=== PATIENT | female | born 1955 | race Caucasian/White ===

== ENCOUNTER 2019-11-08 07:55 | Outpatient (CLI) | payer BC, SELFPAY ==
--- NOTE | ~2019-11-08 | MM_ITS ---
EXAMINATION: MM screening [place] BI w tati HISTORY: Screening mammogram TECHNIQUE: Craniocaudal and mediolateral oblique 3-D tomosynthesis images were obtained and synthetic 2-D images were generated. CAD analysis was submitted and interpreted. COMPARISON: 09/01/2018, 08/16/2017, 08/07/2016 bilateral digital screening BREAST PARENCHYMAL COMPOSITION: There are scattered areas of fibroglandular density. FINDINGS: There is no evidence of suspicious mass, calcification, or architectural distortion to sugg est malignancy in either breast. There has been no suspicious interval change. IMPRESSION: 1. No mammographic evidence of malignancy. 2. Recommend routine screening mammography in one year. BI-RADS Category 1: Negative Reviewed, dictated and finalized at location A.
== END 2019-11-08 07:56 | disposition home or self-care (01) ==
LOC: ANHIMG 08:01
PROVIDERS: PCP Family Medicine
DX: Z12.31 Encounter for screening mammogram for malignant neoplasm of breast (principal)
CPT/HCPCS: 77063; 77067

== ENCOUNTER 2020-11-11 07:58 | Outpatient (CLI) | payer BC, SELFPAY ==
--- NOTE | ~2020-11-11 | MM_ITS ---
EXAMINATION: MM screening [place] BI w tati HISTORY: Screening TECHNIQUE: Craniocaudal and mediolateral oblique 3-D tomosynthesis images were obtained and synthetic 2-D images were generated. CAD analysis was submitted and interpreted. COMPARISON: Comparison to multiple prior studies sequentially, with oldest reviewed study dated 08/06. BREAST PARENCHYMAL COMPOSITION: There are scattered areas of fibroglandular density. FINDINGS: There is no evidence of suspicious mass, calcification, or architectural distortion to sugg est malignancy in either breast. There has been no suspicious interval change. IMPRESSION: 1. No mammographic evidence of malignancy. 2. Recommend routine screening mammography in one year. BI-RADS Category 1: Negative Reviewed, dictated and finalized at location A.
== END 2020-11-11 07:59 | disposition home or self-care (01) ==
LOC: ANHIMG 08:00
PROVIDERS: PCP Family Medicine; Visit Provider Physician Assistant
DX: Z12.31 Encounter for screening mammogram for malignant neoplasm of breast (principal)
CPT/HCPCS: 77063; 77067

== ENCOUNTER 2021-01-13 08:47 | Outpatient (CLI) | payer BC, SELFPAY ==
--- NOTE | ~2021-01-13 | DEXA_ITS ---
Bone Density Report Name: Chelo Kwon Age: 65 Sex: Female Ethnicity: White Date of : 1955 Indication: postmenopausal; hysterectomy; Referring Provider: Aleah Denis Study: Bone densitometry was performed. Exam Date: January 13, 2021 Accession number: [id number] Bone Density: Region BMD T-score Z-score Classification AP Spine (L3, L4) 1.388 2.6 4.4 Normal Femoral Neck (Right) 0.874 0.2 1.7 Normal Total Hip (Right) 1.178 1.9 3.1 Normal World Health Organization criteria for BMD impression classify patients as: Normal (T-score at or above -1.0), Osteopenia (T-score between -1.0 and -2.5), or Osteoporosis (T-score at or below -2.5). 10-year Fracture Risk: FRAX not reported because: All T-scores for Spine Total, Hip Total, Femoral Neck at or above -1.0 Clinical Information Provided by Patient: Has used the following medications: Vitamin D Has the following medical conditions: Hysterectomy Patient maximum height was 61 Menopause Age: 31 Drinks caffeinated beverages Onset of menses at age 14 Number of children 0 Impression: The patient has normal bone mass. Discussion: BONE DENSITY IS ABOVE THE MINIMUM DESIRABLE LEVEL AT ALL SKELETAL SITES TESTED. This patient?s bone mineral density is above the minimum desirable level (T-score -1.0 or better) at all sites measured. The patient should follow a healthful lifestyle (good nutrition with adequate calcium and vitamin D, and appropriate weight-bearing exercise). Follow-Up: Consider repeating this study in 5 years or sooner if there is some new clinical indication. Reported by: VARINDER on 01/13/2021 9:04:00 AM. Reviewed, dictated and finalized at location Meka SANCHEZ
== END 2021-01-13 08:48 | disposition home or self-care (01) ==
LOC: ANHIMG 08:49
PROVIDERS: PCP Family Medicine; Visit Provider Physician Assistant
DX: Z78.0 Asymptomatic menopausal state (principal)
CPT/HCPCS: 77080

== ENCOUNTER 2021-08-13 11:54 | Observation (INO) | payer MEDICARE, SELFPAY ==
[2021-08-13] VITALS (59 sets, daily range): BP systolic 103–177; BP diastolic 55–138; PULSE 72–167; RESP 11–33; TEMP 36.1–36.7; O2SAT 90–100; BMI 49.8
--- NOTE | ~2021-08-13 | XR_ITS ---
EXAMINATION: XR chest 2V DATE: 08/13/2021 12:18 INDICATION: Shortness of breath. TECHNIQUE: Frontal and lateral views of the chest were obtained. COMPARISON: None. FINDINGS: There is mild atelectasis at right mid and lower lung zones and left lower lung zone. Calci fied pulmonary nodules are consistent with old granulomatous disease. No pleural effusion or pneumoth orax. The heart size is normal. There is a right shoulder arthroplasty. IMPRESSION: 1. Mild atelectasis in right mid and lower lung zones and left lower lung zone. Reviewed, dictated and finalized at location B.
--- NOTE | 2021-08-13 12:02 | ECG_ITS ---
Measurements Intervals [place] Rate: 144 P: ID: 0 QRS: -27 QRSD: 99 T: 46 QT: 287 QTc: 445 Interpretive Statements ATRIAL FIBRILLATION WITH RAPID VENTRICULAR RESPONSE BORDERLINE R WAVE PROGRESSION, ANTERIOR LEADS ABNORMAL ECG Electronically Signed On 08-13-2021 12:06:52 CDT by Carlin Bowen D.O.
[2021-08-13 12:20] LABS: Basophils Absolute Auto 0.1 K/mm3 (0.0-0.1); Basophils Percent Auto 0.6 % (0.2-1.2); Eosinophils Absolute Auto 0.2 K/mm3 (0-0.3); Eosinophils Percent Auto 1.8 % (0-4.4); Hematocrit 47.1 % (37.0-47.0); Hemoglobin 15.1 g/dL (12.0-15.0); Immature Granulocyte Absolute 0.06 K/mm3 (0.00-0.031); Immature Granulocyte Percent A 0.6 % (0-0.5); Immature Platelet Fraction Pct 5.3 % (0.9-11.2); Lymphocytes Absolute Auto 2.68 K/mm3 (0.9-3.2); Lymphocytes Percent Auto 24.7 % (18.3-44.2); Mean Corpuscular HGB Conc 32.1 g/dl (32-36); Mean Corpuscular Hemoglobin 30.1 pg (26-34); Mean Platelet Volume 11.7 fl (7.4-10.4); Monocytes Absolute Auto 0.7 K/mm3 (0.1-0.6); Monocytes Percent Auto 6.7 % (2.6-8.5); Neutrophils Absolute Auto 7.1 K/mm3 (1.3-6.7); Neutrophils Percent Auto 65.6 % (45.5-73.1); Platelet Count Result 240 k/mm3 (150-375); Red Blood Count 5.01 M/mm3 (4.2-5.4); Red Cell Distribution Width 14.8 % (11.5-14.5); White Blood Count 10.8 K/mm3 (4.5-10.0)
[2021-08-13 12:29] LABS: Alanine Aminotransferase 31 U/L (4-35); Albumin Level 4.9 g/dL (3.5-5.1); Alkaline Phosphatase 140 U/L (38-126); Anion Gap 9 mmol/L (8-16); Aspartate Amino Transferase 38 U/L (14-36); Bilirubin,Total 0.7 mg/dL (0.2-1.3); Blood Urea Nitrogen 17 mg/dL (7-17); Calcium 9.9 mg/dL (8.4-10.2); Carbon Dioxide 27 mmol/L (22-30); Chloride 102 mmol/L (98-107); Estimated CRCL calculation 71 ml/min; Estimated Glomerular Filt Rate > 60; Glucose 125 mg/dL (65-110); Sodium 138 mmol/L (137-145)
[2021-08-13] MEDS: dilTIAZem HCl INJ 25 MG/5 ML VIAL 15 MG IV PUSH (12:38)
[2021-08-13] MEDS: dilTIAZem HCl INJ 25 MG/5 ML VIAL 10 MG IV PUSH (13:53)
[2021-08-13] MEDS: dilTIAZem 100 MG/100 ML 100 MG/100 ML BAG IV CONT (14:11)
--- NOTE | 2021-08-13 14:15 | ED.SOB ---
HPI - SOB/Dyspnea General Chief Complaint: Shortness of Breath/Dyspnea Stated Complaint: short of breath Time Seen by Provider: 08/13/21 12:08 Source: patient Mode of arrival: ambulatory Limitations: no limitations History of Present Illness HPI Narrative: 66-year-old with a history of hypertension, obstructive sleep apnea, hyperlipidemia, hypothyroidism here with complaints of shortness of breath since this morning. She thought she was having an anxiety attack. However she called her friend who recommended to go to the ER. Patient presently denies having any chest discomfort. She denies any cough , fever or chills. MD elicited complaint: shortness of breath Onset (ago): hour(s) (4) Timing: constant Severity: moderate Exacerbating factors: nothing Relieving factors: nothing Known history of: other (Hypertension) Associated symptoms: denies other symptoms Treatment prior to arrival: none Related Data Home oxygen amount: none Home Medications Medication Instructions Recorded Confirmed cholecalciferol (vitamin D3) 125 125 mcg PO DAILY 12/26/19 04/21/21 mcg (5,000 unit) tablet clindamycin HCl 300 mg capsule 300 mg PO Q8H 12/26/19 04/21/21 cyanocobalamin (vitamin B-12) 1,000 mcg PO DAILY 12/26/19 04/21/21 1,000 mcg capsule xuvvcday-yvdnrle-xkxh-lutein tablet mcg PO DAILY tablet 12/26/19 04/21/21 omega 5-gzt-xfc-fish oil 1,200 mg cap PO .QD cap 12/26/19 04/21/21 (144 mg-216 mg) capsule glucosam 750 mg-chondroi 100 tablet PO 10/11/20 04/21/21 mg-hyalur 1.65 mg-CF borate 108 mg tablet Allergies Allergy/AdvReac Type Severity Reaction Status Date / Time Penicillins Allergy Severe SWELLING Verified 04/21/21 08:51 atenolol Allergy Unknown ANXIETY Verified 04/21/21 08:51 Review of Systems Review of Systems: All systems reviewed & are unremarkable except as noted in HPI and below Eyes: Eyes: Reports no additional eye complaints ENT: Reports system reviewed and no additional complaints, except as documented Cardiovascular: Cardiovascular: Reports as per HPI Respiratory: Respiratory: Reports no additional respiratory complaints Gastrointestinal: Gastrointestinal: Reports no additional gastrointestinal complaints Musculoskeletal: Musculoskeletal: Reports no additional musculoskeletal complaints Integumentary/Breasts: Skin/Breast: Reports system reviewed and no additional complaints, except as docu Neurologic: Reports system reviewed and no additional complaints, except as documented Hematologic/Lymphatic: Hematologic/Lymphatic: Reports no additional hematologic/lymphatic complaints Allergic/Immunologic: Allergic/Immunologic: Reports no additional allergic/immunologic complaints PMFSH Past Medical History Medical History Colon polyps CPAP (continuous positive airway pressure) dependence Encounter to establish care Family history of colon cancer Gout HTN (hypertension) Hyperlipidemia Hypothyroidism (acquired) Morbid obesity with BMI of 50.0-59.9, adult DOMO (obstructive sleep apnea) DOMO on CPAP Osteoarthritis Pre-diabetes Primary hypertension Seasonal allergies Thyroid disorder Thyroid nodule Surgical History Surgical History H/O abdominal hysterectomy History of orthopedic surgery History of shoulder replacement History of tonsillectomy History of total hip replacement Family History Family History Mother Carcinoma of colon Sibling Diabetes mellitus Sibling Hypertension Father Heart disease Social History Social History Second hand tobacco smoke exposure: No Smoking end date: 06/16/91 Alcohol intake: current Drinks per week: 1 Substance use: never Substance use type: does not use Gender identity (if verbalized by the patient): Female S
--- NOTE | 2021-08-13 14:43 | PM.CNCAR ---
Assessment and Plan Assessment and plan (1) Atrial fibrillation with RVR: Code(s): I48.91 - Unspecified atrial fibrillation Status: Acute Assessment and Plan: New onset. Symptomatic. Probably due to obesity and age. [id number] 3. Rate control with Diltiazem. Anticoagulation with Lovenox; will change to DOAC upon discharge. Hopefully she will spontaneously cardiovert with rate control. If not, then will start antiarrhythmic medication. Obtain echo. (2) Hyperlipidemia: Qualifiers: Hyperlipidemia type: mixed hyperlipidemia Qualified Code(s): E78.2 - Mixed hyperlipidemia Code(s): E78.5 - Hyperlipidemia, unspecified Status: Acute Assessment and Plan: Advise to maintain a low saturated fat diet. (3) Primary hypertension: Code(s): I10 - Essential (primary) hypertension Status: Acute Assessment and Plan: Stable. Advise to maintain a low sodium diet. (4) Morbid obesity with BMI of 50.0-59.9, adult: Code(s): E66.01 - Morbid (severe) obesity due to excess calories; Z68.43 - Body mass index [BMI] 50.0-59.9, adult Status: Acute (5) DOMO on CPAP: Code(s): G47.33 - Obstructive sleep apnea (adult) (pediatric); Z99.89 - Dependence on other enabling machines and devices Status: Acute Assessment and Plan: Continue with regular CPAP use for sleep. History of Present Illness History of Present Illness Consult date/time: 08/13/21 14:43 Reason for consult: Atrial fib 66 yr old woman presented to ER for sob and palpitations. She has a history of DOMO on CPAP for 10 years, hypertension, dyslipidemia, pre DM. Her brother is at bedside. Reports she woke up this morning feeling symptoms of weakness, sob, and palpitations. She finally decided to come in to ER and was found she has new onset atrial fib with RVR. She has been started on Diltiazem drip and Lovenox. She states she can walk about 1/2 mile. Denies chest pain, orthopnea, PND, edema, dizziness. EKG shows atrial fib with RVR at 144 bpm, BRWP. CXR shows atelectasis. Previous TSH is normal. CMP is OK with alk phos 140. Reason For Visit: short of breath Review of Systems Review of Systems: All systems reviewed & are unremarkable except as noted in HPI and below Constitutional: Constitutional: Reports as per HPI, Denies chills and Denies fever(s) Cardiovascular: Cardiovascular: Reports as per HPI, Denies chest pain, Reports irregular heart rhythm, Denies leg edema and Denies lightheadedness Respiratory: Respiratory: Reports as per HPI and Reports dyspnea Gastrointestinal: Gastrointestinal: Reports as per HPI and Denies abdominal pain Genitourinary: Genitourinary: Reports as per HPI and Denies dysuria Musculoskeletal: Musculoskeletal: Reports as per HPI Neurologic: Reports as per HPI, Denies dizziness and Denies syncope [facility] Past Medical History Medical History Colon polyps CPAP (continuous positive airway pressure) dependence Encounter to establish care Family history of colon cancer Gout HTN (hypertension) Hyperlipidemia Hypothyroidism (acquired) Morbid obesity with BMI of 50.0-59.9, adult DOMO (obstructive sleep apnea) DOMO on CPAP Osteoarthritis Pre-diabetes Primary hypertension Seasonal allergies Thyroid disorder Thyroid nodule Surgical History Surgical History H/O abdominal hysterectomy History of orthopedic surgery History of shoulder replacement History of tonsillectomy History of total hip replacement Family History Family History Mother Carcinoma of colon Sibling Diabetes mellitus Sibling Hypertension Father Heart disease Social History Social History Second hand tobacco smoke exposure: No Smoking end date: 06/16/91 Carmen
[2021-08-13 14:44] LABS: SARS-CoV-2 RNA PCR Negative
--- NOTE | 2021-08-13 16:24 | PC.NURSE ---
monitor just checked and pt noted to be in SR, ERP notified
--- NOTE | 2021-08-13 16:25 | ECG_ITS ---
Measurements Intervals [place] Rate: 77 P: -10 MI: 162 QRS: -24 QRSD: 101 T: 43 QT: 410 QTc: 466 Interpretive Statements SINUS RHYTHM BORDERLINE R WAVE PROGRESSION, ANTERIOR LEADS BORDERLINE ECG Electronically Signed On 08-13-2021 17:24:27 CDT by Carlin Bowen D.O.
--- NOTE | 2021-08-13 17:00 | PM.IMHP ---
H&P: HPI History of Present Illness Date/Time: 08/13/21 17:00 Chief Complaint: Shortness of breath. Narrative: This is very pleasant 66-year-old female with sleep apnea, hypertension, hyperlipidemia, prediabetes, and hypothyroidism who presented to the emergency department for evaluation of shortness of breath. Shortly after waking up she began to feel short of breath, like she could not inflate her lungs entirely, ?and was just not feeling right.? She has an appointment to get a massaged and while there she started to feel increasingly short of breath at which time she thought perhaps she was having a panic attack although she admits that she has never actually had a panic attack and rarely has anxiety. After talking to her friend about her symptoms, she thought it was best to come to the ER for evaluation where she was found to be in atrial fibrillation with rapid ventricular response. She was started on a Cardizem drip and converted to a normal sinus rhythm within a couple of hours. At the time my evaluation she is feeling much better and is no longer short of breath. She never really had any sensation of racing heart or chest discomfort though it is impossible say if she has been in atrial fibrillation before though she is adamant that she has never experienced similar symptoms prior to today. She denies exertional chest pain, shortness of breath, nausea, vomiting, sweats, syncope, and presyncope. She states compliance with her CPAP though admits that she has gained weight since her last sleep study well over 5 years ago. She denies significant caffeine and alcohol intake. She believes her last TSH was within normal limits. Review of Systems Review of Systems: Twelve systems were reviewed. No fever, chills, or sweats. No recent cold or flu symptoms. She does not check her glucose at home daily but when she does check it it is usually below 110. No orthopnea, PND, or significant lower extremity edema. Except as documented, all other systems were reviewed and are negative. [facility] Past Medical History Medical History (Updated 08/13/21 @ 21:02 by Salena Peter PA-C) Colon polyps Gout Hyperlipidemia Hypertension Hypothyroidism (acquired) Obstructive sleep apnea on CPAP Osteoarthritis Pre-diabetes Primary hypertension Seasonal allergies Thyroid nodule Surgical History Surgical History (Updated 08/13/21 @ 20:59 by Salena Peter PA-C) History of abdominal hysterectomy History of left hip replacement History of orthopedic surgery History of right shoulder replacement History of tonsillectomy Family History Family History Mother Carcinoma of colon Sibling Diabetes mellitus Sibling Hypertension Father Heart disease Social History Social History (Updated 08/13/21 @ 21:00 by Salena Peter PA-C) Social History: Surrogate decision maker: Brown Kwon, brother. Code status: Full code. Smoking packs per day: 1 Smoking cigarettes per day: 20.0 Years smoked: 15 Smoking pack-years: 15.00 Smoking status: Former smoker Second hand tobacco smoke exposure: No Smoking end date: 06/16/91 Alcohol intake: current Drinks per week: 1 Substance use: never Substance use type: does not use Additional living arrangements comments: The patient lives in her own home in [place]. 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 Spiritual care concerns: No Agree to blood products: Yes Meds Home Medications and Allergies Home Medications Medication Instructions Recorded Confirmed Type cholecalciferol (vitamin D3) 125 125 mcg PO DAILY 12/26/19 08/13/21 History mcg (5,000 unit) tablet cyanocobalamin (vitamin B-12) 1,000 mcg PO DAILY 12/26/19 08/13/21 History 1,000 mcg capsule vepfvwml-gpizpgt-ykgv-lutein tablet 1 tablet PO HS tablet 12/26/19 08/13/21 History omega 3-dha-epa-
[2021-08-13] MEDS: RIVAROXABAN 20 MG TABLET PO (17:53)
--- NOTE | 2021-08-13 18:05 | ADMGEN ---
This patient, Chelo Kwon, was admitted to IMU Room 232-01 on 08/13/21 at 1750. Patient/family oriented to hospital policies and general routines including ID bracelet, bed and alarms, visiting hours, pain management, procedures, bathroom and other care routines, personal items, smoking policy, room service/diet, and visiting hours. Information on how to activate the Rapid Response Team has been discussed. Patient/Family are encouraged to report perceived risks to care and to ask questions if they do not understand what they are told or what they should do.
[2021-08-13 18:36] LABS: Troponin I 0.012 ng/mL (0.000-0.034)
[2021-08-13 21:20] LABS: Troponin I 0.013 ng/mL (0.000-0.034)
[2021-08-14] VITALS (7 sets, daily range): BP systolic 150–167; BP diastolic 82–83; PULSE 71–78; RESP 16–22; TEMP 35.8–36.7; O2SAT 95–99
--- NOTE | 2021-08-14 | ECHO_ITS ---
Patient Info Name: Chelo Kwon Age: 66 years : 1955 Gender: Female Ht: 61 in Wt: 249 lbs BSA: 2.28 m2 HR: 72 bpm BP: 150 / 82 mmHg Heart Rhythm: Sinus Rhythm Technical Quality: Fair Exam Date: 08/14/2021 8:25 AM Exam Location: [facility] Patient Status: Outpatient Admit Date: 08/13/2021 Staff Ordering Physician: Carlin Bowen DO Sports Intern: Mita Vora RDCS Attending Provider: Bowen Fan MD Referring Physician: Andrés NAVARRO; Exam Type: CA echo doppler color flow Study Info Indications - new afib Complete two-dimensional, color flow and Doppler transthoracic echocardiogram is performed. Summary 1. Complete two-dimensional, color flow and Doppler transthoracic echocardiogram is performed. 2. Left ventricular chamber dimension is normal. 3. Left ventricular systolic function is normal, estimated at 65-70%. 4. The left ventricular diastolic function is grade I diastolic dysfunction. 5. E/e' 17 is elevated. 6. There is mild aortic valve sclerosis. 7. There is mild aortic valve regurgitation. 8. The mitral valve has mildly calcified annulus. 9. There is trace mitral valve regurgitation. 10. No pulmonary hypertension, estimated pulmonary arterial systolic pressure is 20 mmHg. Left Ventricle E/e' 17 is elevated. Left ventricular chamber dimension is normal. Left ventricular systolic function is normal, estimated at 65-70%. The left ventricular diastolic function is grade I diastolic dysfunction. Right Ventricle Right ventricular systolic function is normal with normal TAPSE 2.0 cm. Right ventricular chamber dimension is normal. Left Atria Left atrial chamber dimension is normal. Right Atria Right atrial chamber dimension is normal. Aortic Valve The aortic valve is trileaflet. There is mild aortic valve sclerosis. There is no aortic valve stenosis. There is mild aortic valve regurgitation. Pulmonic Valve There is no pulmonic regurgitation. Mitral Valve The mitral valve has mildly calcified annulus. There is no mitral valve stenosis. There is trace mitral valve regurgitation. Tricuspid Valve There is no tricuspid valve regurgitation. No pulmonary hypertension, estimated pulmonary arterial systolic pressure is 20 mmHg. Pericardium/Pleural There is no pericardial effusion. Inferior Vena Cava Normal inferior vena cava with >50% collapse upon inspiration consistent with normal right atrial pressure, 5 mmHg. Aorta The aortic root size at the sinus of Valsalva is normal. Left Ventricular Outflow Tract Name Value Normal LVOT 2D LVOT Diameter 2.0 cm LVOT Doppler LVOT Peak Gradient 5 mmHg LVOT Mean Gradient 3 mmHg LVOT VTI 26 cm LVOT VTI/AV VTI Ratio 0.6 LVOT Stroke Volume 84 ml LVOT CO 5.3 l/min LVOT CI 2.3 l/min/m2 Pulmonic Valve Name
[2021-08-14 05:53] LABS: Alanine Aminotransferase 26 U/L (4-35); Albumin Level 3.6 g/dL (3.5-5.1); Alkaline Phosphatase 94 U/L (38-126); Anion Gap 6 mmol/L (8-16); Aspartate Amino Transferase 34 U/L (14-36); Bilirubin,Total 0.8 mg/dL (0.2-1.3); Blood Urea Nitrogen 15 mg/dL (7-17); Calcium 8.5 mg/dL (8.4-10.2); Carbon Dioxide 29 mmol/L (22-30); Chloride 103 mmol/L (98-107); Estimated CRCL calculation 66 ml/min; Estimated Glomerular Filt Rate > 60; Glucose 117 mg/dL (65-110); Magnesium 1.7 mg/dL (1.6-2.3); Potassium 3.5 mmol/L (3.4-5.0); Sodium 138 mmol/L (137-145)
[2021-08-14] MEDS: LEVOTHYROXINE SODIUM 25 MCG TABLET PO (06:10)
--- NOTE | 2021-08-14 08:24 | PM.PNCARD ---
Progress Note: A&P Assessment and Plan (1) Atrial fibrillation with RVR: Code(s): I48.91 - Unspecified atrial fibrillation Status: Acute Assessment and Plan: New onset. Symptomatic. Probably due to obesity and age. [id number] 3. Rate control with Diltiazem. Started on Xarelto 20 mg PM with evening meal. Spontaneously cardioverted. Changed Diltiazem drip to Diltiazem CD 240 mg daily. Obtain echo. If echo is OK, may d/c home from cardiology standpoint and f/u with me in 1-2 weeks. (2) Hyperlipidemia: Qualifiers: Hyperlipidemia type: mixed hyperlipidemia Qualified Code(s): E78.2 - Mixed hyperlipidemia Code(s): E78.5 - Hyperlipidemia, unspecified Status: Acute Assessment and Plan: Advise to maintain a low saturated fat diet. (3) Primary hypertension: Code(s): I10 - Essential (primary) hypertension Status: Acute Assessment and Plan: Stable. Advise to maintain a low sodium diet. (4) Morbid obesity with BMI of 50.0-59.9, adult: Code(s): E66.01 - Morbid (severe) obesity due to excess calories; Z68.43 - Body mass index [BMI] 50.0-59.9, adult Status: Acute (5) DOMO on CPAP: Code(s): G47.33 - Obstructive sleep apnea (adult) (pediatric); Z99.89 - Dependence on other enabling machines and devices Status: Acute Assessment and Plan: Continue with regular CPAP use for sleep. Subjective Date/time seen: 08/14/21 08:24 Denies any more palpitations since spontaneously converted at 4 pm yesterday. No chest pain or sob. Exam Const: General: cooperative, healthy appearing and comfortable Nutritional Appearance: obese Resp: Auscultation: clear to auscultation bilaterally, no crackles, no rales, no rhonchi and no wheezes Cardio: Jugular venous distension: no JVD Rate: regular rate Rhythm: regular rhythm Heart sounds: no murmurs Peripheral pulses: dorsalis pedis present GI: GI Palp: No abdominal tenderness and Yes Soft to palpation Neuro: General: oriented to person, oriented to place and oriented to time Extrem: Right lower extremity: no edema Left lower extremity: no edema Objective Data Vital Signs Vital Signs: Vital Signs - 24 hr 08/13/21 11:55 08/13/21 12:04 08/13/21 12:20 Temperature 98.1 F Pulse Rate 76 143 H 167 H Respiratory Rate 26 H 29 H Blood Pressure 177/90 H Pulse Oximetry 95 99 96 08/13/21 12:30 08/13/21 12:38 08/13/21 12:39 Temperature Pulse Rate 147 H 134 H 131 H Respiratory Rate 21 H 18 Blood Pressure 135/79 Pulse Oximetry 97 98 08/13/21 12:41 08/13/21 12:45 08/13/21 12:46 Temperature Pulse Rate 102 H 113 H 117 H Respiratory Rate 18 18 Blood Pressure 125/78 Pulse Oximetry 96 08/13/21 13:00 08/13/21 13:01 08/13/21 13:15 Temperature Pulse Rate 109 H 119 H 106 H Respiratory Rate 11 L 19 21 H Blood Pressure 138/55 L Pulse Oximetry 97 95 96 08/13/21 13:16 08/13/21 13:30 08/13/21 13:31 Temperature Pulse Rate 126 H 139 H 129 H Respiratory Rate 18 17 17 Blood Pressure 131/63 103/75 Pulse Oximetry 97 97 95 08/13/21 13:35 08/13/21 13:43 08/13/21 13:45 Temperature Pulse Rate 150 H 123 H Respiratory Rate 20 18 Blood Pressure 103/75 135/90 138/100 H Pulse Oximetry 97 97 08/13/21 13:46 08/13/21 13:50 08/13/21 13:51 Temperature Pulse Rate 107 H 134 H 145 H Respiratory Rate 14 25 H 22 H Blood Pressure 158/71 H Pulse Oximetry 96 96 96 08/13/21 13:57 08/13/21 13:58 08/13/21 13:59 Temperature Pulse Rate 99 94 86 Respiratory Rate 20 20 20 Blood Pressure 160/138 H 127/88 Pulse Oximetry 96 97 97 08/13/21 14:01 08/13/21 14:02 08/13/21 14:11 Temperature Pulse Rate 96 118 H 155 H Respiratory Rate 20 23 H Blood Pressure 148/91 H 148/91 H Pulse Oximetry 97 08/13/21 14:15 08/13/21 14:16 08/13/21 14:30 Temperature Pulse Rate 106 H 120 H 107 H Respiratory Rate 26 H 19 28 H Blood Pressure 122/99 H 144/98 H Pulse O
[2021-08-14] MEDS: POTASSIUM CHLORIDE 20 MEQ TABLET.ER PO (09:54)
[2021-08-14] MEDS: allopurinoL 300 MG TABLET PO (09:54)
[2021-08-14] MEDS: metFORMIN HCL 500 MG TABLET 1000 MG PO (09:54)
[2021-08-14] MEDS: calcium polycarbophiL 625 MG TABLET 2500 MG PO (09:55)
[2021-08-14] MEDS: OMEGA 3 POLYUNSAT FATTY ACIDS 1 GM CAP PO (09:56)
[2021-08-14] MEDS: CHOLECALCIFEROL 1,000 UNITS TABLET 5000 UNITS PO (09:56)
[2021-08-14] MEDS: CYANOCOBALAMIN 1,000 MCG TABLET 1000 MCG PO (09:56)
[2021-08-14] MEDS: LOSARTAN POTASSIUM 100 MG TABLET PO (09:56)
--- NOTE | 2021-08-14 11:39 | PM.DS ---
DS: Admitting Diagnosis Discharge Date 08/14/2021 Admitting Diagnosis Shortness of breath DS: Discharge Diagnosis Discharge Diagnosis (1) New onset atrial fibrillation: Code(s): I48.91 - Unspecified atrial fibrillation Status: Acute Assessment and Plan: Associated with rapid ventricular response Status post Cardizem drip converted to sinus rhythm cardiology was consulted patient will be discharged on Cardizem and Xarelto follow-up with cardiology as outpatient (2) Atrial fibrillation with rapid ventricular response: Code(s): I48.91 - Unspecified atrial fibrillation Status: Acute Assessment and Plan: As above (3) Obstructive sleep apnea on CPAP: Code(s): G47.33 - Obstructive sleep apnea (adult) (pediatric); Z99.89 - Dependence on other enabling machines and devices Status: Acute Assessment and Plan: Stable resume home medication (4) Hypertension: Code(s): I10 - Essential (primary) hypertension Status: Acute Assessment and Plan: DC amlodipine as patient was started on Cardizem continue losartan follow-up with cardiology as outpatient (5) Hypothyroidism (acquired): Code(s): E03.9 - Hypothyroidism, unspecified Status: Acute Assessment and Plan: Continue levothyroxine (6) Pre-diabetes: Code(s): R73.03 - Prediabetes Status: Acute Assessment and Plan: Continue home medication DS: Summary Hospital Course Hospital Course: 66 years old female with past medical history of hypertension pre diabetes obstructive sleep apnea hypothyroidism presented to the hospital with shortness of breath was found to have AFib with RVR started on Cardizem drip converted to sinus rhythm cardiology was consulted patient was started on oral Cardizem and Xarelto patient condition continued to improve amlodipine was discontinued as patient will be started on Cardizem patient to follow-up with cardiology in 1 week as outpatient Time Spent with Patient Time attestation: Total time spent providing and/or coordinating discharge services: Exam Narrative: Alert Chest no wheeze crackles Abdomen nontender nondistended CVS S1 + S2 Lower extremity edema DS: Data Data Completed and Pending Labs on day of discharge: Labs from last 24 hours 08/14/21 08/14/21 08/13/21 05:30 05:30 20:35 WBC RBC Hgb Hct MCV MCH MCHC RDW Plt Count MPV Immature Gran % (Auto) Neut % (Auto) Lymph % (Auto) [place] % (Auto) Eos % (Auto) Baso % (Auto) Lymph # (Auto) [place] # (Auto) Eos # (Auto) Baso # (Auto) Abs Immat Gran (auto) Absolute Neuts (auto) Absolute Nucleated RBC Nucleated RBC % % Immature Plt Fraction Sodium 138 Potassium 3.5 Chloride 103 Carbon Dioxide 29 Anion Gap 6 L BUN 15 Creatinine 0.90 Estim Creat Clear Calc 66 Estimated GFR > 60 Glucose 117 H Calcium 8.5 Magnesium 1.7 Total Bilirubin 0.8 AST 34 ALT 26 Alkaline Phosphatase 94 Troponin I 0.013 Total Protein 6.0 L Albumin 3.6 TSH (Reflex) 3.540 SARS-CoV-2 RNA (RT-PCR) 08/13/21 08/13/21 08/13/21 18:01 14:01 12:10 WBC RBC Hgb Hct MCV MCH MCHC RDW Plt Count MPV Immature Gran % (Auto) Neut % (Auto) Lymph % (Auto) [place] % (Auto) Eos % (Auto) Baso % (Auto) Lymph # (Auto) [place] # (Auto) Eos # (Auto) Baso # (Auto) Abs Immat Gran (auto) Absolute Neuts (auto) Absolute Nucleated RBC Nucleated RBC % % Immature Plt Fraction Sodium 138 Potassium 4.0 Chloride 102 Carbon Dioxide 27 Anion Gap 9 BUN 17 Creatinine 0.80 Estim Creat Clear Calc 71 Estimated GFR > 60 Glucose 125 H Calcium 9.9 Magnesium Total Bilirubin 0.7 AST 38 H ALT 31 Alkaline Phosphatase 140 H Troponin I 0.012 Total Protein 8.0 Albumin
== END 2021-08-14 12:52 | disposition home or self-care (01) ==
LOC: ANHED 14:22 → ANHIMU 08-14 10:18
PROVIDERS: Emergency Medicine; Physician Assistant; Admitting Provider Internal Medicine; Emergency Provider Family Medicine; PCP Family Medicine; Visit Provider Internal Medicine
DX: I48.91 Unspecified atrial fibrillation (principal); Z20.822 Contact with and (suspected) exposure to COVID-19; G47.33 Obstructive sleep apnea (adult) (pediatric); I10 Essential (primary) hypertension; E03.9 Hypothyroidism, unspecified; R73.03 Prediabetes; E78.5 Hyperlipidemia, unspecified; E66.01 Morbid (severe) obesity due to excess calories; Z99.89 Dependence on other enabling machines and devices; Z90.710 Acquired absence of both cervix and uterus; Z96.649 Presence of unspecified artificial hip joint; Z96.619 Presence of unspecified artificial shoulder joint; Z68.42 Body mass index [BMI] 45.0-49.9, adult
CPT/HCPCS: 36415; 71046; 80053; 83735; 84443; 84484; 85025; 85055; 93005; 93306; 96365; 96366; 96376; 99285; A9270; C9803; G0378; U0003; U0005

== ENCOUNTER 2021-09-26 08:32 | Outpatient (CLI) | payer MEDICARE, SELFPAY ==
--- NOTE | ~2021-09-26 | NM_ITS ---
EXAMINATION: NM madeline stress w perfusion DATE: 09/26/2021 11:47 INDICATION: Abnormal electrocardiogram. Dyspnea. TECHNIQUE: Rest images were obtained following intravenous administration of 9.8 mCi Tc99m tetrofosmi n (Myoview). The patient was infused intravenously with Lexiscan (regadenoson). Then, 31.2 mCi Tc99m tetrofosmin (Myoview) was administered intravenously, and stress images were obtained. Data was recon structed into short axis and horizontal and vertical long axis SPECT images. Gated SPECT images were also obtained. COMPARISON: None. FINDINGS: There is a large, moderate, fixed perfusion defect involving the left ventricular inferior wall, apical septal segment, and mid inferoseptal segment, consistent with infarct. No reversible com ponent to suggest ischemia.. There is no segmental wall motion abnormality. Left ventricular ejecti on fraction measures 61%. IMPRESSION: 1. Large area of moderate infarct involving left ventricular inferior wall, apical septal segment, an d mid inferoseptal segment. 2. Normal left ventricular ejection fraction measuring 61%. Reviewed, dictated and finalized at location B. IMPRESSION: 1. Large area of moderate infarct involving left ventricular inferior wall, api robel septal segment, and mid inferoseptal segment. 2. Normal left ventricular ejection fraction measuring 61%.
--- NOTE | 2021-09-26 08:42 | EST_ITS ---
Patient Info Name: Chelo Kwon Age: 66 years : 1955 Gender: Female Ht: 60 in Wt: 260 lbs BSA: 2.31 m2 Exam Date: 09/26/2021 9:43 AM Exam Location: [facility] Stress Patient Status: Outpatient Admit Date: 09/26/2021 Staff Ordering Physician: Carlin Bowen DO Attending Provider: Carlin Bowen DO Exercise Technologist: Adilene Bourgeois RDCS Exercise Physician: Carlin Bowen DO Exam Type: CA stress madeline w NM Study Info Indications R06.00 - Dyspnea, unspecified A regadenoson stress test was performed. Summary 1. 1. Negative lexiscan stress test for ischemic ST changes by ECG criteria. 2. 2. Baseline hypertension. 3. 3. Nuclear scan to follow and will be reported separately. Please correlate with it. 4. 4. Patient informed of the above results. Protocol: Lexiscan Stress ECG Details Stage: REST Duration (min): 6 min : 23 sec HR (bpm): 58 SBP (mmHg): 213 DBP (mmHg): 91 Stage: REST Duration (min): 15 min : 43 sec HR (bpm): 62 SBP (mmHg): 176 DBP (mmHg): 87 Stage: STAGE 1 Duration (min): 1 min : 0 sec HR (bpm): 67 SBP (mmHg): 165 DBP (mmHg): 88 Stage: RECOVERY Duration (min): 1 min : 0 sec HR (bpm): 71 SBP (mmHg): 165 DBP (mmHg): 88 Stage: RECOVERY Duration (min): 2 min : 0 sec HR (bpm): 69 SBP (mmHg): 165 DBP (mmHg): 88 Stage: RECOVERY Duration (min): 3 min : 0 sec HR (bpm): 65 SBP (mmHg): 198 DBP (mmHg): 90 Stage: RECOVERY Duration (min): 4 min : 0 sec HR (bpm): --- SBP (mmHg): 198 DBP (mmHg): 89 Stage: RECOVERY Duration (min): 4 min : 39 sec HR (bpm): --- SBP (mmHg): 198 DBP (mmHg): 89 Rest HR: 62 bpm Peak HR: 73 bpm Rest Sys BP: 176 mmHg Peak Sys BP: 198 mmHg Max Pred HR: 155 bpm % Max Pred HR: 47 % Target HR: 132 bpm Max RPP: 14,454 bpm*mmHg Termination Reason: Completed protocol Cardiac Symptoms: Shortness of breath Total Time: 1 min : 0 sec Rest Tadeo BP: 87 mmHg Peak Tadeo BP: 90 mmHg Total Dose: 0.4 mg Resting ECG Sinus rhythm, IRBBB. Stress ECG No ST changes. Arrhythmias None. Report Signatures
== END 2021-09-26 08:33 | disposition home or self-care (01) ==
PROVIDERS: PCP Family Medicine; Visit Provider Internal Medicine Cardiovascular Disease
DX: R06.00 Dyspnea, unspecified (principal); I21.9 Acute myocardial infarction, unspecified
CPT/HCPCS: 78452; 93017; A9502; J2785

== ENCOUNTER 2021-10-09 00:42 | Day surgery (SDC) | payer MEDICARE, SELFPAY ==
[2021-10-02 13:49] VITALS: BMI 49.1
--- NOTE | 2021-10-07 12:32 | PM.HPGS ---
History of Present Illness History of Present Illness Consent: Risks, benefits, and alternatives have been discussed and questions answered. Patient agrees to proceed with procedure. Chief complaint: hx of colon polyps, family hx of colon ca Narrative: Chelo Kwon is a 66 year old female Referred for colon cancer screening. Her last colonoscopy was 3 years ago. She had 2 adenomatous polyps removed at that time. Also, her mother had colon cancer Review of Systems Review of Systems: All systems reviewed & are unremarkable except as noted in HPI and below PMFSH Past Medical History Medical History Atrial fibrillation Colon polyps Diabetes mellitus Gout Hyperlipidemia Hypertension Hypothyroidism (acquired) Obstructive sleep apnea on CPAP Osteoarthritis Pre-diabetes Primary hypertension Seasonal allergies Thyroid nodule Surgical History Surgical History History of abdominal hysterectomy History of left hip replacement History of orthopedic surgery History of right shoulder replacement History of tonsillectomy Family History Family History Mother Carcinoma of colon Sibling Diabetes mellitus Sibling Hypertension Father Heart disease Social History Social History Social History: Surrogate decision maker: Brown Kwon, brother. Code status: Full code. Smoking packs per day: 1 Smoking cigarettes per day: 20.0 Years smoked: 15 Smoking pack-years: 15.00 Smoking status: Never smoker Tobacco type: cigarettes Second hand tobacco smoke exposure: No Smoking end date: 06/16/91 Alcohol intake: current Drinks per week: 1 Substance use: never Substance use type: does not use Living arrangements: with family Additional living arrangements comments: The patient lives in her own home in [place]. 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 Spiritual care concerns: No Agree to blood products: Yes Meds Home Medications and Allergies Home Medications Medication Instructions Recorded Confirmed Type cyanocobalamin (vitamin B-12) 1,000 mcg PO DAILY 12/26/19 10/06/21 History 1,000 mcg capsule omega 7-dku-njf-fish oil 1,200 mg 2 cap PO .QD 12/26/19 10/06/21 History (144 mg-216 mg) capsule (Fish Oil) allopurinol 300 mg tablet 300 mg PO DAILY #90 tabs 12/30/20 10/06/21 Rx levothyroxine 25 mcg tablet 25 mcg PO DAILY #90 tabs 12/30/20 10/09/21 Rx losartan 100 mg tablet 100 mg PO DAILY #90 tabs 12/30/20 10/06/21 Rx metformin 1,000 mg tablet 1,000 mg PO DAILY #90 tabs 12/30/20 10/09/21 Rx potassium chloride 20 mEq 20 meq PO BID #180 tabs 12/30/20 10/06/21 Rx tablet,extended release fiber 2 cap PO HS 08/13/21 10/06/21 History fiber 4 cap PO DAILY 08/13/21 10/06/21 History sodium sul 1.479 gram-potas ch See Rx Instructions PO PER PKG DIR 08/20/21 10/06/21 Rx 0.188 gram-magnes sul 0.225 gram #24 tabs tablet (Sutab) metoprolol tartrate 25 mg tablet 25 mg PO BID #60 tabs 08/27/21 10/06/21 Rx diltiazem HCl 240 mg 240 mg PO QAM #90 caps 09/03/21 10/09/21 Rx capsule,extended release 24 hr, controlled rivaroxaban 20 mg tablet (Xarelto) 20 mg PO DAILY@1700 #90 tabs 09/03/21 10/09/21 Rx Honey Hips with Vitamin C 1 cap PO DAILY 10/02/21 10/06/21 History cholecalciferol (vitamin D3) 25 25 mcg PO DAILY 10/02/21 10/06/21 History mcg (1,000 unit) capsule (Vitamin D3) clindamycin HCl 300 mg capsule 300 mg PO DIRECTED PRN OTHER 10/02/21 10/06/21 History glucosam 750 mg-chondroi 100 1 tablet PO DAILY 10/02/21 10/06/21 History mg-hyalur 1.65 mg-CF borate 108 mg tablet (Move Free Brightfish) multivit with 1 tablet PO QPM 10/02/21 10/06/21 History thvrtjnl-fwjk-TD-lutein 8 mg iron-400 mcg-300 mcg tab
--- NOTE | 2021-10-08 18:47 | WPDANESEPPF ---
Anes - Initial Pre Proc Eval Procedure: Operation Date: 10/09/21 07:30 Proposed Procedures p Screening Colonoscopy - Vincent Royal MD Date/Time: 10/08/21 18:47 Surgeon: Vincent Royal MD Pre Op Diagnosis: hx of colon polyps, family hx of colon ca Patient Data Age: 66 Gender: F Height: 1.55 m Weight: 118 kg Allergies Allergy/AdvReac Type Severity Reaction Status Date / Time Penicillins Allergy Severe SWELLING Verified 10/09/21 06:24 atenolol Allergy Intermediate ANXIETY Verified 10/09/21 06:24 Home Medications Medication Instructions Recorded Confirmed Type cyanocobalamin (vitamin B-12) 1,000 mcg PO DAILY 12/26/19 10/06/21 History 1,000 mcg capsule omega 2-vhh-phv-fish oil 1,200 mg 2 cap PO .QD 12/26/19 10/06/21 History (144 mg-216 mg) capsule (Fish Oil) allopurinol 300 mg tablet 300 mg PO DAILY #90 tabs 12/30/20 10/06/21 Rx levothyroxine 25 mcg tablet 25 mcg PO DAILY #90 tabs 12/30/20 10/09/21 Rx losartan 100 mg tablet 100 mg PO DAILY #90 tabs 12/30/20 10/06/21 Rx metformin 1,000 mg tablet 1,000 mg PO DAILY #90 tabs 12/30/20 10/09/21 Rx potassium chloride 20 mEq 20 meq PO BID #180 tabs 12/30/20 10/06/21 Rx tablet,extended release fiber 2 cap PO HS 08/13/21 10/06/21 History fiber 4 cap PO DAILY 08/13/21 10/06/21 History sodium sul 1.479 gram-potas ch See Rx Instructions PO PER PKG DIR 08/20/21 10/06/21 Rx 0.188 gram-magnes sul 0.225 gram #24 tabs tablet (Sutab) metoprolol tartrate 25 mg tablet 25 mg PO BID #60 tabs 08/27/21 10/06/21 Rx diltiazem HCl 240 mg 240 mg PO QAM #90 caps 09/03/21 10/09/21 Rx capsule,extended release 24 hr, controlled rivaroxaban 20 mg tablet (Xarelto) 20 mg PO DAILY@1700 #90 tabs 09/03/21 10/09/21 Rx Honey Hips with Vitamin C 1 cap PO DAILY 10/02/21 10/06/21 History cholecalciferol (vitamin D3) 25 25 mcg PO DAILY 10/02/21 10/06/21 History mcg (1,000 unit) capsule (Vitamin D3) clindamycin HCl 300 mg capsule 300 mg PO DIRECTED PRN OTHER 10/02/21 10/06/21 History glucosam 750 mg-chondroi 100 1 tablet PO DAILY 10/02/21 10/06/21 History mg-hyalur 1.65 mg-CF borate 108 mg tablet (FarmDrop) multivit with 1 tablet PO QPM 10/02/21 10/06/21 History llcxsdgi-khhc-RP-lutein 8 mg iron-400 mcg-300 mcg tablet (Centrum Silver Women) Patient hx anesthesia problems: none Family hx anesthesia problems: none Results Review: All pre-operative results and documents have been reviewed as part of the pre-operative evaluation. [facility] Past Medical History Medical History (Updated 10/08/21 @ 18:48 by Ashwin Dodd DO) Atrial fibrillation Colon polyps Diabetes mellitus Gout Hyperlipidemia Hypertension Hypothyroidism (acquired) Obstructive sleep apnea on CPAP Osteoarthritis Pre-diabetes Primary hypertension Seasonal allergies Thyroid nodule Surgical History Surgical History History of abdominal hysterectomy History of left hip replacement History of orthopedic surgery History of right shoulder replacement History of tonsillectomy Family History Family History Mother Carcinoma of colon Sibling Diabetes mellitus Sibling Hypertension Father Heart disease Social History Social History Social History: Surrogate decision maker: Brown Kwon, brother. Code status: Full code. Smoking packs per day: 1 Smoking cigarettes per day: 20.0 Years smoked: 15 Smoking pack-years: 15.00 Smoking status: Never smoker Tobacco type: cigarettes Second hand tobacco smoke exposure: No Smoking end date: 06/16/91 Alcohol intake: current Drinks per week: 1 Substance use: never Substance use type: does not use Living arrangements: with family Additional living arrangements comments: The patient lives in
[2021-10-09 06:29] VITALS: BP 160/111; PULSE 66; RESP 18; TEMP 36.3; O2SAT 97; BMI 48.8
[2021-10-09] MEDS: LACTATED RINGERS 1,000 ML 150 ML IV CONT (06:32)
[2021-10-09 06:50] LABS: Glucose Point of Care 122 mg/dl (65-105)
[2021-10-09 07:46] VITALS: BP 160/66; PULSE 61; RESP 23; O2SAT 98
[2021-10-09 07:56] VITALS: BP 121/69; PULSE 56; RESP 21; O2SAT 97
[2021-10-09 08:06] VITALS: BP 164/66; PULSE 51; RESP 20; O2SAT 98
== END 2021-10-09 08:15 | disposition home or self-care (01) ==
PROVIDERS: PCP Family Medicine; Visit Provider Internal Medicine Gastroenterology
PROC: 0DJD8ZZ Inspection of Lower Intestinal Tract, Via Natural or Artificial Opening Endoscopic (ICD-10-PCS; CPT 45378; principal; 2021-10-09 07:30)
DX: Z12.11 Encounter for screening for malignant neoplasm of colon (principal); K62.1 Rectal polyp; Z86.010 Personal history of colon polyps; Z80.0 Family history of malignant neoplasm of digestive organs; K57.30 Diverticulosis of large intestine without perforation or abscess without bleeding; E03.9 Hypothyroidism, unspecified; Z79.01 Long term (current) use of anticoagulants; Z79.84 Long term (current) use of oral hypoglycemic drugs; I48.91 Unspecified atrial fibrillation; E11.9 Type 2 diabetes mellitus without complications; E78.5 Hyperlipidemia, unspecified; I10 Essential (primary) hypertension; G47.33 Obstructive sleep apnea (adult) (pediatric); E04.1 Nontoxic single thyroid nodule; F17.210 Nicotine dependence, cigarettes, uncomplicated; E66.01 Morbid (severe) obesity due to excess calories; Z68.42 Body mass index [BMI] 45.0-49.9, adult; M10.9 Gout, unspecified
CPT/HCPCS: 45385; 82948; 88305; J2704; J7120

== ENCOUNTER 2021-11-19 09:00 | Outpatient (CLI) | payer MEDICARE, SELFPAY ==
--- NOTE | 2021-12-09 03:16 | WPDSLEEPSTUD ---
Sleep Study Date of Study: 11/19/21 Ordering Provider: Artur Montalvo APRN Interpreting Physician: Veronica Garcia DO Sleep Study Type: Polysomnogram Height: 1.55 m Weight: 117.934 kg Body Mass Index: 49.1 Neck Circumference (inches): 15 [place]: 4 Reason for Sleep Study Previously diagnosed DOMO. Her CPAP machine was recalled. She has been on CPAP for the past 7 years. Sleep History The patient is a 66-year-old female with hypertension, atrial fibrillation, hyperlipidemia, hypothyroidism, prediabetes, gout, history of tobacco use and previously diagnosed sleep apnea that had a sleep study ordered by the Pulmonary office for evaluation of sleep apnea. Sleep the patient frequently awakens from sleep short of breath. She denies awakening at night with heartburn, belching or cough. She frequently snores loud enough that others Brett. She occasionally has trouble sleeping when she has a cold. She frequently wakes up gasping for air throughout the night. She frequently has breathing problems at night observed by herself or others. She rarely sweats excessively at night. She occasionally has heart palpitations or irregular heartbeats during the night. She rarely falls asleep during the day and never while driving. She denies sleep paralysis and cataplexy. She denies having trouble at school or work due to sleepiness. She occasionally remembers her dreams. She denies having thoughts racing through her mind. She denies noticing parts of her body jerk. She denies kicking during the night. She denies having crawling aching feelings in her legs as well as leg pain during the night. She occasionally grinds her teeth during sleep but denies awakening with morning jaw pain. She denies being bothered by pain during the day and is rarely awakened by pain during the night. She rarely wakes up feeling stiff in the morning. She rarely wakes up with Sore a thapa muscles. She rarely wakes up with pain in the neck, spine and other joints. She goes to bed between midnight to 1:00 a.m. on both weekdays and weekends. She is able to fall asleep within 30 minutes. Without CPAP, she wakes up every 60-90 minutes. She is able to fall back asleep within 30 minutes. She wakes up between 7-9 a.m. on both weekdays and weekends. She gets 6-9 hours of sleep per night. She will stay in bed for less than 15 minutes after waking up in the morning. She currently lives alone. She does not consume any caffeinated beverages within 2 hours of bedtime. She does not engage in physical exercise before bedtime. She will read and watch television before falling asleep. She will occasionally take naps in the afternoon or the evening and they are refreshing. She drinks 1-2 cups of coffee per day. She will drink an alcoholic beverage once every week or 2. She quit smoking in June 1991. She denies recreational drug use. [facility] Past Medical History Medical History Atrial fibrillation Colon polyps Diabetes mellitus Gout Hyperlipidemia Hypertension Hypothyroidism (acquired) Obstructive sleep apnea on CPAP Osteoarthritis Pre-diabetes Primary hypertension Seasonal allergies Thyroid nodule Surgical History Surgical History History of abdominal hysterectomy History of left hip replacement History of orthopedic surgery History of right shoulder replacement History of tonsillectomy Family History Family History Mother Carcinoma of colon Sibling Diabetes mellitus Sibling Hypertension Father Heart disease Social History Social History Social History: Surrogate decision maker: Brown Kwon, brother. Code status: Full code. Smoking packs per day: 1 Smoking cigarettes per day: 20.0 Years smoked:
[2021-12-09 14:06] VITALS: BMI 49.1
== END 2021-11-20 06:41 | disposition home or self-care (01) ==
LOC: ANHCSM 09:00
PROVIDERS: PCP Family Medicine; Visit Provider Nurse Practitioner Family
DX: G47.34 Idiopathic sleep related nonobstructive alveolar hypoventilation (principal); G47.33 Obstructive sleep apnea (adult) (pediatric); Z99.89 Dependence on other enabling machines and devices
CPT/HCPCS: 95810

== ENCOUNTER 2021-11-26 14:56 | Outpatient (CLI) | payer MEDICARE, SELFPAY ==
--- NOTE | ~2021-11-26 | MM_ITS ---
EXAMINATION: MM screening leonides BI w tati HISTORY: . Screening TECHNIQUE: Craniocaudal and mediolateral oblique 3-D tomosynthesis images were obtained and synthetic 2-D images were generated. CAD analysis was submitted and interpreted. COMPARISON: 11/11/2020, 11/08/2019, 09/01/2018 bilateral screening mammogram examinations BREAST PARENCHYMAL COMPOSITION: There are scattered areas of fibroglandular density. FINDINGS: There is no evidence of suspicious mass, calcification, or architectural distortion to sugg est malignancy in either breast. There has been no suspicious interval change. IMPRESSION: 1. No mammographic evidence of malignancy. 2. Recommend routine screening mammography in one year. BI-RADS Category 1: Negative Reviewed, dictated and finalized at location A.
== END 2021-11-26 14:57 | disposition home or self-care (01) ==
LOC: ANHIMG 14:58
PROVIDERS: PCP Family Medicine; Visit Provider Physician Assistant
DX: Z12.31 Encounter for screening mammogram for malignant neoplasm of breast (principal)
CPT/HCPCS: 77063; 77067

== ENCOUNTER 2021-12-22 13:27 | Outpatient (CLI) | payer MEDICARE, SELFPAY ==
--- NOTE | 2021-12-23 12:56 | WPDPFTINT ---
PFT Procedure Performed PFT Procedure Performed Spirometry with Pre/Post Bronchodilator Plethysmography (Lung Vol) Diffusing Cap (DLCO) Flow Vol Loop PFT Interpretation Lung volumes were measured with the body plethysmography method. The diminished expiratory reserve volume is related to obesity. The remainder of the lung volumes are unremarkable. Spirometry showed diminished expiratory flow rates and a normal FEV1 to FVC ratio of 71%. Following administration of a bronchodilator there was a borderline increase in FEV1. Lung diffusion capacity is within the normal range at 95% predicted. The flow volume loop is unremarkable. Impression: Nonspecific pattern. Lung diffusion capacity within normal range.
== END 2021-12-22 13:28 | disposition home or self-care (01) ==
LOC: ANHPFT 13:28
PROVIDERS: PCP Family Medicine; Visit Provider Nurse Practitioner Family
DX: R06.00 Dyspnea, unspecified (principal); G47.34 Idiopathic sleep related nonobstructive alveolar hypoventilation
CPT/HCPCS: 94060; 94726; 94729

== ENCOUNTER 2021-12-23 07:38 | Outpatient (CLI) | payer MEDICARE, SELFPAY ==
--- NOTE | 2022-01-22 12:10 | WPDSLEEPSTUD ---
Sleep Study Date of Study: 12/23/21 Ordering Provider: Artur Montalvo APRN Interpreting Physician: Carmelina Horn MD Sleep Study Type: CPAP Titration Height: 1.55 m Weight: 117.027 kg Body Mass Index: 48.7 Neck Circumference (inches): 19 [place]: 4 Reason for Sleep Study * 11/19/2021 AHI of 35.6 with desaturation down to 70%, severe sleep apnea, 81.4 minutes with an oxygen saturation less than 88%.? Sleep History Chelo Kwon is a 66-year-old female with long standing obstructive sleep apnea, on treatment for 7 years. She had a home sleep test 11/19/21 because her device broke, and she needed to re-qualify for a CPAP machine. Her medical conditions include hypertension, atrial fibrillation, hyperlipidemia, hypothyroidism, prediabetes, gout, and history of tobacco use. She frequently awakens from sleep short of breath.? She denies awakening at night with heartburn, belching or cough.? She frequently snores loud enough that others Brett.? She occasionally has trouble sleeping when she has a cold.? She frequently wakes up gasping for air throughout the night.? She frequently has breathing problems at night observed by herself or others.? She rarely sweats excessively at night.? She occasionally has heart palpitations or irregular heartbeats during the night.? She rarely falls asleep during the day and never while driving.? She denies sleep paralysis and cataplexy.? She denies having trouble at school or work due to sleepiness.? She occasionally remembers her dreams.? She denies having thoughts racing through her mind.? She denies noticing parts of her body jerk.? She denies kicking during the night.? She denies having crawling aching feelings in her legs or leg pain during the night.? She occasionally grinds her teeth during sleep but denies awakening with morning jaw pain.? She denies being bothered by pain during the day and is rarely awakened by pain during the night.? She rarely wakes up feeling stiff in the morning.? She rarely wakes up with Sore a thapa muscles.? She rarely wakes up with pain in the neck, spine and other joints.? Normal bedtime is between midnight to 1:00 a.m. , falling asleep within 30 minutes.? Without CPAP, she wakes up every 60-90 minutes.? She is able to return to sleep within 30 minutes.? She wakes up between 7-9 a.m. on both weekdays and weekends.? She estimates gets 6-9 hours of sleep per night. She occasionally takes naps in the afternoon or the evening. A short nap may be refreshing. ? Habits: Quit tobacco 1991. Caffeine: 1-2 cups of coffee per day.? Alcohol: 1 alcoholic beverage every one to 2 weeks. She denies recreational drug use. [facility] Past Medical History Medical History Atrial fibrillation Colon polyps Diabetes mellitus Gout Hyperlipidemia Hypertension Hypothyroidism (acquired) Obstructive sleep apnea on CPAP Osteoarthritis Pre-diabetes Primary hypertension Seasonal allergies Thyroid nodule Surgical History Surgical History History of abdominal hysterectomy History of left hip replacement History of orthopedic surgery History of right shoulder replacement History of tonsillectomy Family History Family History Mother Carcinoma of colon Sibling Diabetes mellitus Sibling Hypertension Father Heart disease Social History Social History Social History: Surrogate decision maker: Brown Kwon, brother. Code status: Full code. Smoking packs per day: 1 Smoking cigarettes per day: 20.0 Years smoked: 15 Smoking pack-years: 15.00 Smoking status: Former smoker Tobacco type: cigarettes Second hand tobacco smoke exposure: No Smoking end date: 06/16/91 Alcohol intake: current Drinks per week: 1 Substance use: never Substance use type:
[2022-01-22 12:18] VITALS: BMI 48.7
== END 2021-12-24 05:41 | disposition home or self-care (01) ==
PROVIDERS: PCP Family Medicine; Visit Provider Nurse Practitioner Family
DX: G47.61 Periodic limb movement disorder (principal); G47.33 Obstructive sleep apnea (adult) (pediatric); G47.34 Idiopathic sleep related nonobstructive alveolar hypoventilation; Z68.42 Body mass index [BMI] 45.0-49.9, adult
CPT/HCPCS: 95811

== ENCOUNTER 2022-01-23 10:15 | Outpatient (CLI) | payer MEDICARE, SELFPAY | END 2022-01-23 10:16 | disposition home or self-care (01) | PROVIDERS: PCP Family Medicine; Visit Provider Nurse Practitioner Family | DX: I48.91 Unspecified atrial fibrillation (principal); G47.61 Periodic limb movement disorder | CPT/HCPCS: 36415; 82728 ==

== ENCOUNTER 2022-11-16 08:37 | Outpatient (CLI) | payer MEDICARE, SELFPAY ==
--- NOTE | ~2022-11-16 | US_ITS ---
EXAMINATION: US thyroid DATE: 11/16/2022 09:19 INDICATION: Nontoxic single thyroid nodule. TECHNIQUE: Multiple ultrasound images of the thyroid were obtained. COMPARISON: None. FINDINGS: The right thyroid lobe measures 4.5 x 1.6 x 2.4 cm. The left thyroid lobe measures 4.2 x 1.7 x 2.1 c m. In the left thyroid lobe, there is a 1.7 cm solid, isoechoic, wider than tall nodule with ill-def ined margin without echogenic foci (TI-RADS TR3). In the left thyroid lobe, there is a 10 mm solid, w ider than tall nodule with smooth margin and peripheral calcifications (TR4). In the right thyroid lo be, there is a 2.5 cm solid, isoechoic, wider than tall nodule with ill-defined margin without echoge aleisha foci (TR3). IMPRESSION: 1. Multinodular goiter. Consider ultrasound-guided fine-needle aspiration of the 2.5 cm right thyroid nodule. Reviewed, dictated and finalized at location A. IMPRESSION: 1. Multinodular goiter. Consider ultrasound-guided fine-needle aspiration of th e 2.5 cm right thyroid nodule.
== END 2022-11-16 08:38 | disposition home or self-care (01) ==
PROVIDERS: PCP Family Medicine; Visit Provider Physician Assistant
DX: E04.2 Nontoxic multinodular goiter (principal)
CPT/HCPCS: 76536

== ENCOUNTER 2023-01-12 13:49 | Outpatient (CLI) | payer MEDICARE, SELFPAY ==
--- NOTE | ~2023-01-12 | MM_ITS ---
EXAMINATION: MM screening [facility] BI w tati HISTORY: Screening mammogram TECHNIQUE: Craniocaudal and mediolateral oblique 3-D tomosynthesis images were obtained and synthetic 2-D images were generated. CAD analysis was submitted and interpreted. COMPARISON: 11/26/2021, 11/11/2020, 11/08/2019 BREAST PARENCHYMAL COMPOSITION: There are scattered areas of fibroglandular density. FINDINGS: No suspicious mass, calcification, or architectural distortion are identified in either portillo ast to suggest malignancy. There has been no suspicious interval change. IMPRESSION: 1. No mammographic evidence of malignancy. 2. Recommend routine screening mammography in one year. BI-RADS Category 1: Negative Reviewed, dictated and finalized at location A.
== END 2023-01-12 13:50 | disposition home or self-care (01) ==
PROVIDERS: PCP Family Medicine; Visit Provider Physician Assistant
DX: Z12.31 Encounter for screening mammogram for malignant neoplasm of breast (principal)
CPT/HCPCS: 77063; 77067

== ENCOUNTER 2023-01-13 14:44 | Outpatient (CLI) | payer MEDICARE, SELFPAY ==
[2023-01-13 17:20] LABS: Free T4 Free Thyroxine 1.52 ng/mL (0.78-2.19)
== END 2023-01-13 14:45 | disposition home or self-care (01) ==
LOC: ANHWCLAB 14:47
PROVIDERS: PCP Family Medicine; Visit Provider Internal Medicine
DX: I10 Essential (primary) hypertension (principal)
CPT/HCPCS: 36415; 84439; 84443

== ENCOUNTER 2023-02-02 12:19 | Outpatient (CLI) | payer MEDICARE, SELFPAY ==
--- NOTE | ~2023-02-02 | US_ITS ---
EXAMINATION: US FNA w image guidance, US FNA additional DATE: 02/02/2023 13:46 INDICATION: Bilateral thyroid nodules TECHNIQUE: A time-out was performed to verify the patient's name, date of , and procedure to be performed . The procedure and its benefits and risks were discussed with the patient. Risks specifically discus sed included bleeding and infection. The patient understood the risks and agreed to proceed. The righ t neck was prepped and draped in the usual sterile manner. 3 mL 1% lidocaine was used for local anes thesia. 6 passes were made with a 25G needle into the 2.5 cm TI RADS 4 right thyroid nodule. Approp riate needle location was documented with continuous sonographic guidance. Subsequently the left neck was prepped and draped in usual sterile manner. An additional 3 mm 1% lidocaine was used for local a nesthesia. 6 passes were made with a 20 5G needle into the 1.8 cm TI RADS [address] nodule[address] A [address] erile bandage was applied. There were no immediate complications. FINDINGS: Grayscale ultrasound images demonstrate biopsy needles advanced into first a 2.5 cm solid hypoechoic TI RADS 4 nodule at the mid inferior right thyroid. Subsequent images demonstrate biopsy needles adva nced into a 1.8 cm solid hypoechoic TI RADS 4 nodule at the inferior left thyroid. IMPRESSION: 1. Successful ultrasound-guided fine needle aspiration of a 2.5 cm TI RADS 4 right thyroid nodule. 2. Successful ultrasound-guided fine-needle aspiration of a 1.8 cm TI RADS 4 left thyroid nodule. Reviewed, dictated and finalized at location A. IMPRESSION: 1. Successful ultrasound-guided fine needle aspiration of a 2.5 cm TI RADS 4 r ight thyroid nodule. 2. Successful ultrasound-guided fine-needle aspiration of a 1.8 cm TI RADS 4 le ft thyroid nodule.
== END 2023-02-02 12:20 | disposition home or self-care (01) ==
PROVIDERS: PCP Family Medicine; Visit Provider Internal Medicine
DX: E04.1 Nontoxic single thyroid nodule (principal)
CPT/HCPCS: 10005; 10006; 88173; 88305

== ENCOUNTER 2023-05-10 12:24 | Outpatient (CLI) | payer MEDICARE, SELFPAY ==
--- NOTE | ~2023-05-10 | US_ITS ---
EXAMINATION: US FNA w image guidance DATE: 05/10/2023 13:44 INDICATION: Right thyroid nodule. TECHNIQUE: The procedure and its benefits and risks were discussed with the patient. Risks specifically discusse d included bleeding. The patient verbalized understanding of the risks and agreed to proceed. The nec k was prepped and draped in the usual sterile manner. 1% lidocaine was used for local anesthesia. 6 passes were made with a 25G needle into the lesion under ultrasound guidance. There were no immedia te complications. FINDINGS: Grayscale ultrasound images demonstrate needles advanced into a 2.6 cm nodule in right thyroid lobe f or biopsy. IMPRESSION: 1. Ultrasound-guided fine needle aspiration of a 2.6 cm nodule in right thyroid lobe. Reviewed, dictated and finalized at location A. INE GREASER IMPRESSION: 1. Ultrasound-guided fine needle aspiration of a 2.6 cm nodule in right thyroi d lobe.
== END 2023-05-10 12:25 | disposition home or self-care (01) ==
PROVIDERS: PCP Family Medicine; Visit Provider Internal Medicine
DX: E04.2 Nontoxic multinodular goiter (principal)
CPT/HCPCS: 10005; 88172; 88173; 88305

== ENCOUNTER 2023-11-11 08:40 | Outpatient (CLI) | payer MEDICARE, SELFPAY ==
--- NOTE | ~2023-11-11 | US_ITS ---
Thyroid ultrasound. Clinical History: Multinodular goiter Comparison October 16, 2022 Findings: Real-time sonography of the thyroid gland was performed. The right lobe measures 4.5 x 1.5 x 1.7 cm. The left lobe measures 3.8 x 1.8 x 1.8 cm. The isthmus is 3 mm in AP diameter. There is a 2.1 x 1.3 x 1.9 cm heterogeneous mixed echogenicity nodule at the right lower pole. There is a 0.9 cm probable cystic nodule in the left thyroid lobe towards the isthmus. There is an ad ditional 1.4 x 1.6 x 1.1 cm hypoechoic solid nodule at the left inferior pole. Impression: Thyroid nodules, as above, essentially stable from prior exam.. Reviewed, dictated and finalized at [facility]. Impression: Thyroid nodules, as above, essentially stable from prior exam..
== END 2023-11-11 08:41 | disposition home or self-care (01) ==
PROVIDERS: PCP Family Medicine; Visit Provider Internal Medicine
DX: E04.2 Nontoxic multinodular goiter (principal)
CPT/HCPCS: 76536

== ENCOUNTER 2024-02-09 08:11 | Outpatient (CLI) | payer MEDICARE, SELFPAY ==
--- NOTE | ~2024-02-09 | MM_ITS ---
EXAMINATION: MM screening [facility] BI w tati HISTORY: Screening mammogram TECHNIQUE: Craniocaudal and mediolateral oblique 3-D tomosynthesis images were obtained and synthetic 2-D images were generated. CAD analysis was submitted and interpreted. COMPARISON: 01/12/2023, 11/26/2021, 11/11/2020 BREAST PARENCHYMAL COMPOSITION:Not Dense. There are scattered areas of fibroglandular density. FINDINGS: No suspicious mass, calcification, or architectural distortion are identified in either portillo ast to suggest malignancy. There has been no suspicious interval change. IMPRESSION: No mammographic evidence of malignancy. Recommend routine screening mammography in one year. BI-RADS Category 1: Negative Reviewed, dictated and finalized at location .
== END 2024-02-09 08:12 | disposition home or self-care (01) ==
LOC: ANHIMG 08:14
PROVIDERS: PCP Family Medicine; Visit Provider Student in an Organized Health Care Education/Training Program
DX: Z12.31 Encounter for screening mammogram for malignant neoplasm of breast (principal)
CPT/HCPCS: 77063; 77067

== ENCOUNTER 2024-02-14 07:50 | Outpatient (CLI) | payer MEDICARE, SELFPAY ==
--- NOTE | ~2024-02-14 | DEXA_ITS ---
Bone Density Report Name: SHAHRZAD LAGUNA Age: 68 Sex: Female Ethnicity: White Date of : 1955 Indication: postmenopausal; screening for osteoporosis; height loss; hysterectomy; Referring Provider: NINI DUPREE Study: Bone densitometry was performed. Exam Date: February 14, 2024 Accession number: [id number] Bone Density: Region BMD T-score Z-score Classification AP Spine(L1-L4) 1.638 5.4 7.3 Normal Femoral Neck (Right) 0.887 0.3 2.0 Normal Total Hip (Right) 1.139 1.6 3.0 Normal World Health Organization criteria for BMD impression classify patients as: Normal (T-score at or above -1.0), Osteopenia (T-score between -1.0 and -2.5), or Osteoporosis (T-score at or below -2.5). 10-year Fracture Risk: FRAX not reported because: All T-scores for Spine Total, Hip Total, Femoral Neck at or above -1.0 Previous Exams: Region Exam Age BMD T-score BMD Change BMD Change Date g/cm2 vs Baseline vs Previous Total Hip(Right) 02/14/2024 68 1.139 1.6 -0.039 (-3.3%) -0.039 (-3.3%) 01/13/2021 65 1.178 1.9 *Denotes significance at 95% confidence level, LSC for Total Hip = 0.027 g/cm2 # Denotes dissimilar scan types or analysis methods Clinical Information Provided by Patient: Has used the following medications: Vitamin D Has the following medical conditions: Hysterectomy Patient maximum height was 61.0 Menopause Age: 31 Drinks caffeinated beverages Onset of menses at age 14 Number of children 0 Impression: The patient has normal bone mass. No significant bone loss was observed. Discussion: BONE DENSITY IS ABOVE THE MINIMUM DESIRABLE LEVEL AT ALL SKELETAL SITES TESTED. This patient?s bone mineral density is above the minimum desirable level (T-score -1.0 or better) at all sites measured. The patient should follow a healthful lifestyle (good nutrition with adequate calcium and vitamin D, and appropriate weight-bearing exercise). Follow-Up: Consider repeating this study in 5 years or sooner if there is some new clinical indication. Reported by: DILIP on 02/14/2024 8:19:00 AM. Reviewed, dictated and finalized at location Meka SANCHEZ
== END 2024-02-14 07:51 | disposition home or self-care (01) ==
LOC: ANHIMG 07:50
PROVIDERS: PCP Family Medicine; Visit Provider Student in an Organized Health Care Education/Training Program
DX: Z78.0 Asymptomatic menopausal state (principal)
CPT/HCPCS: 77080

== ENCOUNTER 2024-08-15 13:38 | Outpatient (CLI) | payer MEDICARE, SELFPAY ==
--- NOTE | ~2024-08-15 | US_ITS ---
US arterial ankle brachial ind INDICATION: Circulatory issues. Prediabetic. Atrial fibrillation. Hypertension. TECHNIQUE: Segmental pressures and plethysmographic and Doppler waveforms of the brachial and lower e xtremity arteries were obtained. COMPARISON: None. FINDINGS: Left brachial artery pressures 1 67 mmHg. The right ankle-brachial index (ELIZABET) is 1.16 (normal >= 0.9-1.0). The right great toe-brachial index (TBI) is 0.77 (normal >= 0.60). The left ELIZABET is 1.29. The left TBI is 0.68. IMPRESSION: 1. Normal ankle-brachial indices. Reviewed, dictated and finalized at location A.
== END 2024-08-15 13:39 | disposition home or self-care (01) ==
PROVIDERS: PCP Family Medicine; Visit Provider Student in an Organized Health Care Education/Training Program
DX: R09.89 Other specified symptoms and signs involving the circulatory and respiratory systems (principal)
CPT/HCPCS: 93922

== ENCOUNTER 2025-02-21 10:10 | Outpatient (CLI) | payer MEDICARE, SELFPAY ==
--- NOTE | ~2025-02-21 | US_ITS ---
EXAMINATION: US thyroid DATE: 02/21/2025 11:29 INDICATION: Thyroid nodule TECHNIQUE: Multiple ultrasound images of the thyroid were obtained. COMPARISON: November 11, 2023 FINDINGS: The right thyroid lobe measures 1.9 x 2.5 x 4.5 cm. The left thyroid lobe measures 2.1 x 2.4 x 4.3 Isthmus: 7 mm. In the right lobe, a 1.6 x 1.3 x 1.5 cm nodule noted decreased in size compared to the previous exam when it measured up to 2.1 cm, with TI-RADS 3-4 sonographic features. In the left lobe, a 1.5 x 1.4 x 1.4 cm TI-RADS 3-4 nodule noted not significantly changed in appearance. A second 10 x 9 x 9 mm nodule also noted The remainder the thyroid appears normal and vascular flow and echotexture. IMPRESSION: Multiple nodules again noted with indeterminate/suspicious sonographic features or TI-RADS 3 and 4 but stable to decreased size which favors benignity. Continued surveillance recommended. RECOMMENDATION: Follow-up surveillance thyroid ultrasound in 12 months with recommended dated next exam on or about February 212025. Reviewed, dictated and finalized at location A. [employer] TE[employer]ER IMPRESSION: Multiple nodules again noted with indeterminate/suspicious sonograp hic features or TI-RADS 3 and 4 but stable to decreased size which favors benig nity. Continued surveillance recommended. RECOMMENDATION: Follow-up surveillance thyroid ultrasound in 12 months with rec ommended dated next exam on or about February 212025.
== END 2025-02-21 10:11 | disposition home or self-care (01) ==
LOC: ANHIMG 10:13
PROVIDERS: PCP Family Medicine; Visit Provider Internal Medicine
DX: E04.2 Nontoxic multinodular goiter (principal)
CPT/HCPCS: 76536